=== PATIENT | male | born 1990 | race African-American/Black ===

== ENCOUNTER 2020-08-15 16:37 | Emergency (ER) | payer OTHER ==
[~2020-08-15] VITALS: Ht 175.3 cm; Wt 68.0 kg
[2020-08-15 17:15] LABS: ABSOLUTE NEUTROPHILS 6.7 thou/uL (1.4-8.2); BASOPHILS 0.9 % (0.0-2.0); EOSINOPHILS 0.3 % (0.0-3.0); HEMATOCRIT 50.7 % (42.0-52.0); HEMOGLOBIN 16.9 gm/dL (14.0-18.0); MCH 33.9 pg (26.0-34.0); MCHC 33.4 g/dL (28.0-37.0); MCV 101.3 fL (80.0-100.0); MONOCYTES 3.9 % (1.0-8.0); PLATELET COUNT 300 thou/uL (150-400); POLYS 75.9 % (36.0-66.0); RDW 12.6 % (10.5-14.5); WBC 8.8 thou/uL (4.0-11.0)
[2020-08-15 17:33] LABS: CREATININE 1.2 mg/dL (0.7-1.3); POTASSIUM 4.1 mmol/L (3.5-5.1)
[2020-08-15 17:39] LABS: ALBUMIN 4.8 g/dL (3.4-5.0); TOTAL BILIRUBIN 0.7 mg/dL (0.2-1.0); TOTAL PROTEIN 8.8 g/dL (6.4-8.2)
[2020-08-15] MEDS ORDERED: ZOFRAN ODT4 MG PO (18:07)
[2020-08-15 18:19] VITALS: BP 118/65
== END 2020-08-15 18:19 | disposition home or self-care (01) ==
LOC: ER 16:37
PROVIDERS: Emergency Medicine Emergency Medical Services
DX: T51.91XA Toxic effect of unspecified alcohol, accidental (unintentional), initial encounter (principal); R10.9 Unspecified abdominal pain; Z91.013 Allergy to seafood; Y92.89 Other specified places as the place of occurrence of the external cause